=== PATIENT | female | born 1990 | race Two or more races ===

== ENCOUNTER 2023-04-10 14:30 | Inpatient (IN) | payer OTHER ==
[~2023-04-10] VITALS: Ht 157.5 cm; Wt 73.0 kg
[2023-04-22] MEDS ORDERED: PRENATAL CAPLE1 EAC1 (06:17)
[2023-04-22 06:48] LABS: HEMATOCRIT 35.7 % (36.0-45.00); HEMOGLOBIN 12.4 g/dL (12.0-15.00); MEAN CELL VOLUME 87.4 fL (80.00-100.00); MEAN CORPUSCULAR HEMOGLOBIN 30.5 pg (27.00-32.0); MEAN CORPUSCULAR HGB CONC 34.9 g/dl (32.0-36.0); PLATELET COUNT 211 K/uL (150-450); RED BLOOD COUNT 4.08 M/uL (4.00-6.00); RED CELL DISTRIBUTION WIDTH 13.8 % (11.5-14.5)
[2023-04-22 07:11] LABS: ALBUMIN 2.9 gm/dL (3.4-5.0); BILIRUBIN TOTAL 0.41 mg/dL (0.3-1.2); CALCIUM 8.9 mg/dL (8.5-10.1); CREATININE SERUM 0.67 mg/dL (0.55-1.02); GFR 101.36; GLOBULINA 3.5 G/DL (2.4-3.5); INR < 0.93; PARTIAL THROMBOPLASTIN TIME 29.3 SECONDS (22.0-34.0); POTASSIUM 3.79 mEq/L (3.5-5.1); PROTHROMBIN TIME 9.3 SECONDS (9.0-11.5); TOTAL PROTEIN 6.4 gm/dL (6.4-8.2)
[2023-04-23 10:06] LABS: HEMATOCRIT 31.5 % (36.0-45.00); MEAN CELL VOLUME 87.4 fL (80.00-100.00); MEAN CORPUSCULAR HEMOGLOBIN 30.4 pg (27.00-32.0); MEAN CORPUSCULAR HGB CONC 34.8 g/dl (32.0-36.0); PLATELET COUNT 198 K/uL (150-450); RED CELL DISTRIBUTION WIDTH 14.2 % (11.5-14.5)
== END 2023-04-24 13:58 | disposition home or self-care (01) | DRG 807 ==
LOC: LDR 04-21 14:30 → OB/GYN 04-22 05:54 → LDR 04-22 05:54 → OB/GYN 04-22 13:02
PROVIDERS: Obstetrics & Gynecology Maternal & Fetal Medicine; ADMIT Obstetrics & Gynecology; ATTEND Obstetrics & Gynecology
PROC: 10E0XZZ Delivery of Products of Conception, External Approach (ICD-10-PCS; principal; 2023-04-22)
PROC: 0KQM0ZZ Repair Perineum Muscle, Open Approach (ICD-10-PCS; 2023-04-22)
PROC: 4A1HXCZ Monitoring of Products of Conception, Cardiac Rate, External Approach (ICD-10-PCS; 2023-04-22)
DX: O70.1 Second degree perineal laceration during delivery (principal); Z37.0 Single live birth; O99.824 Streptococcus B carrier state complicating childbirth; Z3A.40 40 weeks gestation of pregnancy; Z20.822 Contact with and (suspected) exposure to COVID-19

== ENCOUNTER 2023-04-14 15:33 | Outpatient (CLI) | payer OTHER | END 2023-04-14 17:00 | disposition home or self-care (01) | LOC: NST 15:33 | PROVIDERS: ATTEND Obstetrics & Gynecology Gynecology | DX: Z34.83 Encounter for supervision of other normal pregnancy, third trimester (principal) ==

== ENCOUNTER 2023-04-21 14:14 | Outpatient (CLI) | payer OTHER ==
[2023-04-22] MEDS ORDERED: PRENATAL CAPLE1 EAC1 (06:17)
== END 2023-04-21 14:57 | disposition home or self-care (01) ==
LOC: NST 14:14
PROVIDERS: ATTEND Obstetrics & Gynecology Maternal & Fetal Medicine
DX: Z34.83 Encounter for supervision of other normal pregnancy, third trimester (principal)